=== PATIENT | male | born 1995 | race Hispanic/Latino ===

== ENCOUNTER 2021-01-28 05:02 | Emergency (ER) | payer SELFPAY ==
[2021-01-28] MEDS ORDERED: Ibuprofen 800 MG TAB ONE (05:24)
== END 2021-01-28 06:06 | disposition home or self-care (01) ==
LOC: ERS 05:02 → EDBD 05:02 → ERS 06:06
DX: R07.9 Chest pain, unspecified (principal); R06.00 Dyspnea, unspecified; F17.200 Nicotine dependence, unspecified, uncomplicated
CPT/HCPCS: 71045; 93005